=== PATIENT | male | born 1985 | race African-American/Black ===

== ENCOUNTER 2017-01-12 23:22 | Inpatient (IN) | payer OTHER ==
[~2017-01-12] VITALS: Ht 185.4 cm; Wt 75.1 kg
[2017-01-12 23:58] LABS: EOSINOPHIL (%) 3.8 % (0-5); EOSINOPHIL COUNT 0.2 K/uL (0-0.3); HEMATOCRIT 38.6 % (38.0-50.0); IMMATURE GRANULOCYTE (%) 0.2 % (0.0-0.7); INSTRUMENT ABS NEUTROPHIL CT 3.3 K/uL; LYMPHOCYTE COUNT 1.6 K/uL (1.0-2.8); MCH 27.2 PG (29.0-34.0); MCHC 32.1 G/DL (30.0-36.0); MCV 84.6 FL (86-99); MEAN PLAT.VOLUME 11.7 uM^3 (9.0-12.4); MONOCYTE (%) 6.2 % (3-12); MONOCYTE COUNT 0.3 K/uL (0-0.8); NEUTROPHIL (%) 59.2 % (45-76); NEUTROPHIL COUNT 3.3 K/uL (1.8-6.4); PLATELET COUNT 214 K/uL (156-360); RBC DIS.WIDTH-CV 12.2 % (11.8-14.6); RBC DIS.WIDTH-SD 37.1 % (39-53); RED BLOOD COUNT 4.56 M/uL (4.00-5.50); WHITE BLOOD COUNT 5.5 K/uL (4.1-10.2)
[2017-01-13] VITALS (7 sets, daily range): BP systolic 104–155; BP diastolic 40–66
[2017-01-13 00:14] LABS: GFR ESTIMATE (CALCULATED) > 59 mL/min/
[2017-01-13 00:15] LABS: UREA NITROGEN (BUN) 11 mg/dL (9-23)
[2017-01-13 02:25] LABS: SAMPLE HEMOLYSIS CHECK 0; SAMPLE ICTERIC CHECK 0; SAMPLE LIPEMIA CHECK 0
[2017-01-13 02:42] LABS: ANION GAP 10 MEQ/L (2-14); CHLORIDE 104 MEQ/L (99-109); GLUCOSE 98 mg/dL (70-99); POTASSIUM 4.1 MEQ/L (3.7-5.4); SODIUM 142 MEQ/L (136-147)
[2017-01-13 07:52] LABS: METH RESISTANT S AUREUS PCR NEGATIVE (NEGATIVE)
[2017-01-13 07:53] LABS: PROBE CHECK PASS; SPECIMEN PROCESSING CONTROL PASS
[2017-01-13] MEDS ORDERED: DEPAKOTE500 MG PO (09:01)
[2017-01-13] MEDS ORDERED: CELEXA10 MG PO (09:01)
[2017-01-14] VITALS: BP 124/47
[2017-01-14 02:00] VITALS: BP 109/52
[2017-01-14 04:00] VITALS: BP 128/42
[2017-01-14 05:59] LABS: HEMATOCRIT 40.5 % (38.0-50.0); MCH 26.4 PG (29.0-34.0); MCHC 31.4 G/DL (30.0-36.0); MCV 84.2 FL (86-99); MEAN PLAT.VOLUME 11.6 uM^3 (9.0-12.4); PLATELET COUNT 215 K/uL (156-360); RBC DIS.WIDTH-CV 12.1 % (11.8-14.6); RBC DIS.WIDTH-SD 36.9 % (39-53); RED BLOOD COUNT 4.81 M/uL (4.00-5.50); WHITE BLOOD COUNT 4.8 K/uL (4.1-10.2)
[2017-01-14 06:00] VITALS: BP 127/53
[2017-01-14 08:00] VITALS: BP 111/55
[2017-01-14 12:00] VITALS: BP 116/49
[2017-01-14] MEDS ORDERED: LEVETIRACETAM500 MG PO (12:47)
[2017-01-14] MEDS ORDERED: CARBAMAZEPINE200 MG PO (12:47)
== END 2017-01-14 14:05 | DRG 100 ==
LOC: EME 23:22 → EDBD 23:22 → EDOF 01-13 05:33 → 4WEST 01-13 05:33 → ENRESERV 01-13 05:35 → 4WEST 01-13 06:07 → ENRESERV 01-13 17:14 → 4WEST 01-14 14:05
PROVIDERS: Emergency Medicine; Hospitalist
DX: G40.409 Other generalized epilepsy and epileptic syndromes, not intractable, without status epilepticus (principal); S06.5X9A Traumatic subdural hemorrhage with loss of consciousness of unspecified duration, initial encounter; Z79.899 Other long term (current) drug therapy; I62.9 Nontraumatic intracranial hemorrhage, unspecified; W19.XXXA Unspecified fall, initial encounter; Z23 Encounter for immunization; Z87.891 Personal history of nicotine dependence; J32.0 Chronic maxillary sinusitis
CPT/HCPCS: 70450; 80048; 80164; 85025; 85027; 87641; 90686; 95819; 99281; 99285; J1953; J2060; J2405; J3010; J7050